=== PATIENT | male | born 1995 | race Caucasian/White ===

== ENCOUNTER 2022-09-14 14:20 | Emergency (ER) | payer OTHER ==
[2022-09-14 15:05] VITALS: BP 143/81
--- NOTE | 2022-09-14 15:14 | ED Physician Documentation ---
History of Present Illness - Stated complaint Stated Complaint: SORE THROAT - Chief complaint Chief Complaint: Heent - History obtained from History obtained from: Patient - Additonal information Additional information: Otherwise healthy 27-year-old gentleman who is active duty in the [employer] has had a sore throat for 4 days. 2 days ago he was visiting [place] and was diagnosed with strep pharyngitis. He did have a positive strep test there (note for MIPS review). He received IM penicillin greater than 48 hours ago but it is slightly worse. No fevers. Review of Systems Constitutional: reports: Reviewed and negative Nose: reports: Reviewed and negative Cardiac: reports: Reviewed and negative Respiratory: reports: Reviewed and negative PD PAST MEDICAL HISTORY - Present Medications Home Medications: Ambulatory Orders Medication Instructions Recorded Confirmed HYDROcod/ACETAM 5/325 [[place] 5/325] 1 - 2 tab PO Q6H PRN #15 tablet 09/14/22 cephALEXin [Keflex] 500 mg PO Q6H #40 cap 09/14/22 predniSONE [Deltasone] 20 mg PO [id number] #21 tab 09/14/22 - Allergies Allergies/Adverse Reactions: Allergies Allergy/AdvReac Type Severity Reaction Status Date / Time No Known Drug Allergies Allergy Verified 09/14/22 15:04 PD ED PE NORMAL - Vitals Vital signs reviewed: Yes - General General: Alert and oriented X 3, No acute distress - HEENT HEENT: Other (Severe exudative tonsillitis with mild hot potato voice but no asymmetry. Positive cervical adenopathy.) - Neck Neck: Supple, no meningeal sign, No bony TTP - Neuro Neuro: Alert and oriented X 3, Normal speech - Psych Psych: Normal mood, Normal affect Results - Vitals Vitals: Vital Signs - 24 hr 09/14/22 15:02 Temperature 36.9 C Heart Rate 103 H Respiratory 14 Rate Blood Pressure 143/81 H O2 Saturation 99 Oxygen O2 Source Room air PD Medical Decision Making - ED course ED course: 27-year-old gentleman with known positive strep pharyngitis has failed treatment with IM penicillin, will start Keflex and he needs some pain control with prednisone and narcotics as well. Departure - Departure Disposition: 01 Home, Self Care Clinical Impression: Strep pharyngitis Condition: Good Record reviewed to determine appropriate education?: Yes Instructions: ED Strep Pharyngitis Conf Prescriptions: predniSONE [Deltasone] 20 mg PO [id number] #21 tab cephALEXin [Keflex] 500 mg PO Q6H #40 cap HYDROcod/ACETAM 5/325 [[place] 5/325] 1 - 2 tab PO Q6H PRN #15 tablet PRN Reason: Pain Comments: I sent your prescriptions electronically to [facility] in [place]. 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 Return for new or worsening symptoms. I am prescribing a short course of narcotic pain medication for you. These are potentially dangerous and addictive medications that should be used carefully. These medications may constipate you. Take an uqjw-bis-bwwrrsd stool softener (docusate) twice daily with plenty of water while taking these medications. If you go 24 hours without a bowel movement, take bape-nye-wlviupt miralax, per package instructions. Do not drink or drive while taking these medications. If you received narcotic or sedating medications while in the emergency department, do not drive for 24 hours. Store this medication in a safe, secure place and out of reach of children. It is a violation of federal law to give or sell this medication to another person or to use in a manner other than prescribed. The ED will not refill narcotic prescriptions, including prescriptions lost or stolen. To dispose of unwanted medications: 1. [facility] at [address] in [place] has a medication drop box. They accept prescription medications (in pill form) Monday through Monday 9:00 a.m. to 5:00 p.m. 2. [facility] accepts prescription medications (in pill form only) for disposal year round. Call for more information. 3. Contact the [facility] for the next [facility] sponsored prescription drug collection event. , [phone], or [phone]; Note that many narcotic pain relievers also contain Tylenol/acetaminophen. Please ensure that your total dose of acetaminophen from all sources does not exceed 3 g (3000 mg) per day.
== END 2022-09-14 15:20 | disposition home or self-care (01) ==
LOC: ED 14:50
DX: J02.0 Streptococcal pharyngitis (principal)
CPT/HCPCS: 99283